=== PATIENT | female | born 1985 | race Hispanic/Latino ===

== ENCOUNTER 2018-06-16 07:04 | Inpatient (IN) | payer OTHER ==
[2018-06-15 13:23] LABS: BASOPHILS # (AUTO) 0.1 (0.0-0.1); BASOPHILS % 0.5 % (0.0-1.0); EOSINOPHILS # (AUTO) 0.2 (0.0-0.4); EOSINOPHILS % 2.2 % (0.0-6.0); LYMPHOCYTES # (AUTO) 3.7 (1.0-3.2); LYMPHOCYTES % 38.9 % (18.0-39.1); MEAN CORPUSCULAR HEMOGLOBIN 24.2 pg (28-32); MEAN CORPUSCULAR HGB CONC 30.6 g/dL (31-35); MEAN CORPUSCULAR VOLUME 79.1 fL (81-99); MONOCYTES # (AUTO) 0.8 (0.2-0.8); MONOCYTES % 8.5 % (4.4-11.3); NEUTROPHILS # (AUTO) 4.7 (2.1-6.9); NEUTROPHILS % 49.6 % (38.7-80.0); PLATELET COUNT 332 x10e3/uL (140-360); RED BLOOD COUNT 4.55 x10e6/uL (3.6-5.1); RED CELL DISTRIBUTION WIDTH 15.3 % (11.7-14.4)
[2018-06-15 13:37] LABS: ANION GAP 13.8 mmol/L (8-16); BLOOD UREA NITROGEN 13 mg/dL (7-26); BUN/CREATININE RATIO 17 (6-25); CALCIUM 9.6 mg/dL (8.4-10.2); CARBON DIOXIDE 24 mmol/L (22-29); CHLORIDE 106 mmol/L (98-107); CREATININE, SERUM 0.76 mg/dL (0.57-1.11); EST GLOMERULAR FILTRATION RATE > 60 ML/MIN (60-); GLUCOSE 114 mg/dL (74-118); POTASSIUM 3.8 mmol/L (3.5-5.1); SODIUM 140 mmol/L (136-145)
[~2018-06-16] VITALS: Ht 165.1 cm; Wt 112.5 kg
[2018-06-16] MEDS ORDERED: CEFAZOLIN SOD 2 GM/D5W 50ML 50 ML IV ONE (07:19)
[2018-06-16] MEDS ORDERED: ESTROGENS CONJUGATED VAGINAL CR 45 GM TUBE PV ONE (11:52)
[2018-06-16] MEDS ORDERED: BUPIVACAINE 0.25%/EPI 30ML SDV INJ ONE (11:52)
[2018-06-16] MEDS ORDERED: MIDAZOLAM HCL 2 MG/2 ML VIAL ONE (12:34)
[2018-06-16] MEDS ORDERED: FENTANYL CITRATE/PF 100MCG/2 ML INJ ONE ×2 (12:34→17:11)
[2018-06-16] MEDS ORDERED: LIDOCAINE HCL 2% LOCAL INJ 5 ML SDV VIAL INJ ONE (14:25)
[2018-06-16] MEDS ORDERED: ONDANSETRON HCL INJ 2 MG/ML VIAL ONE (14:25)
[2018-06-16] MEDS ORDERED: NEOSTIGMINE 5 MG/5ML SYR ONE (14:25)
[2018-06-16] MEDS ORDERED: PROPOFOL IV EMULSION 10 MG/ML 20 ML VIAL ONE (14:25)
[2018-06-16] MEDS ORDERED: CEFAZOLIN SOD 1 GM VIAL ONE (14:25)
[2018-06-16] MEDS ORDERED: GLYCOPYRROLATE INJ 1MG/ 5 ML SYR ONE (14:25)
[2018-06-16] MEDS ORDERED: SEVOFLURANE INHAL SOLN 250 ML PEN BTL ONE (14:25)
[2018-06-16] MEDS ORDERED: DEXAMETHASONE SOD PHOS INJ 4 MG/ML VIAL ONE (14:25)
[2018-06-16] MEDS ORDERED: ACETAMINOPHEN 1000 MG/100 ML IV ONE (14:25)
[2018-06-16] MEDS ORDERED: ROCURONIUM BROMIDE 10 MG/ML 5ML VIAL ONE (14:25)
[2018-06-16] MEDS ORDERED: METHYLENE BLUE 1% INJ 10 ML VIAL INJ ONE (14:53)
[2018-06-16] MEDS ORDERED: IOPAMIDOL 300MG/ML 50ML INFUS..BTL IV ONE ×2 (14:57→15:06)
[2018-06-16] MEDS ORDERED: METRONIDAZOLE 500MG/NS 100ML 100 ML IV ONE (15:12)
[2018-06-16] MEDS ORDERED: ACETAMINOPHEN 1000 MG/100 ML 100 ML IV ONE (16:26)
[2018-06-16] MEDS ORDERED: BISACODYL 5 MG TAB EC PO PRN (17:15)
[2018-06-16] MEDS ORDERED: ONDANSETRON HCL INJ 2 MG/ML VIAL IV PRN (17:15)
[2018-06-16] MEDS ORDERED: ZOLPIDEM TARTRATE 5 MG TAB PO PRN (17:15)
[2018-06-16 17:42] LABS: HEMATOCRIT 29.6 % (34.2-44.1); MEAN CORPUSCULAR HEMOGLOBIN 24.2 pg (28-32); MEAN CORPUSCULAR HGB CONC 30.4 g/dL (31-35); MEAN CORPUSCULAR VOLUME 79.6 fL (81-99); PLATELET COUNT 310 x10e3/uL (140-360); RED BLOOD COUNT 3.72 x10e6/uL (3.6-5.1); RED CELL DISTRIBUTION WIDTH 15.5 % (11.7-14.4)
[2018-06-16] MEDS ORDERED: LEVOFLOXACIN 500MG/D5W 100ML 100 ML IV SCH ×2 (18:00→20:00)
[2018-06-16] MEDS: MORPHINE SULFATE 1 MG/ML 30ML PCA IV PRN (18:06)
[2018-06-16 18:39] LABS: EOSINOPHILS % (MANUAL) 1 % (0-7); HYPOCHROMASIA SLIGHT; LYMPHOCYTES % (MANUAL) 11 % (19-48); MICROCYTOSIS SLIGHT; MONOCYTES % (MANUAL) 1 % (3.4-9.0); NEUTROPHILS % (MANUAL) 87 % (40-74); PLATELET ESTIMATE ADEQUATE; PLATELET MORPHOLOGY COMMENT NORMAL; RBC MORPHOLOGY COMMENT ABNORMAL
[2018-06-16 20:00] VITALS: BP 102/54
[2018-06-16] MEDS: LACTATED RINGER'S 1,000 ML IV SCH (20:34)
--- NOTE | 2018-06-16 20:55 | Consultation ---
DATE OF CONSULTATION: June 16, 2018 INTRAOPERATIVE CONSULTATION SERVICE: Urology. ATTENDING PHYSICIAN: Dr. Dee Parker HISTORY OF PRESENT ILLNESS: This is a 32-year-old patient that I was called for consultation during gynecological surgery. The surgery was laparoscopic, which was performed by the rf manager, is hysterectomy, right salpingo-oophorectomy, left salpingectomy. During the procedure, they thought that they identified some opening into the bladder. Patient does not have any previous urological history. Past surgical history is 2 C-sections. Patient is significantly obese and weighs about 250 pounds. No information about family. ALLERGIES TO MEDICATIONS: NOT DOCUMENTED. MEDICATIONS: See MAR. REVIEW OF SYSTEMS: Unable to obtain at the present time. PHYSICAL EXAMINATION: GENERAL: Patient is presently intubated. VITAL SIGNS: Blood pressure 110/65, pulse 88, temperature normal. HEAD: Symmetric. ABDOMEN: Not distended. PELVIC: Unremarkable. LOWER EXTREMITIES: No edema. LABORATORY DATA: Hemoglobin on June 15, 2018 11 g, white count 9.45. Creatinine 0.76, BUN 13. Electrolytes normal. Blood pressure before surgery 110/70, pulse 70. IMPRESSION: 1. Status post laparoscopic hysterectomy, right salpingo-oophorectomy, and left salpingectomy. 2. Obesity. 3. Possible injury to bladder. PLAN: I am planning to do cystoscopy, cystogram and pending the findings consider additional steps. Thank you for the consult. Job#: [id number]
--- NOTE | 2018-06-16 21:10 | Operative Report ---
DATE OF PROCEDURE: June 16, 2018 SERVICE: Urology. ATTENDING PHYSICIAN: Dr. Dee Parker. PREOPERATIVE DIAGNOSIS: Suspected injury to the bladder during laparoscopic salpingo-oophorectomy on the right side, left salpingectomy and hysterectomy. POSTOPERATIVE DIAGNOSIS: Bladder perforation above the trigone and the posterior wall of the bladder and blood clots in the bladder. OPERATION PERFORMED 1. Cystogram under fluoroscopic control. 2. Cystoscopy and evacuation of clots. 3. Open repair of bladder perforation, complicated due to the previous surgery. ICE MAKER: Dr. Parker. CLINICAL INDICATION NOTE: This is a 32-year-old patient, underwent laparoscopic gynecological surgery and they noticed possible injury to the bladder. Patient was assessed with cystoscopy and cystogram that revealed extravasation and cystoscopy revealed blood clots and opening in the bladder. DESCRIPTION OF PROCEDURE: The patient then was repositioned in a supine position. A 22-[place] 25 cm Garcia catheter was inserted. She was prepped and draped in a sterile fashion. A Pfannenstiel incision was done. The bladder opening was identified about 1 inch in length, very close to the cuff of the vagina. The bladder posterior wall was from the vagina and closed in 2 layers. A chromic 2-0 was used in a running fashion to close the bladder mucosa and muscularis and a 2nd layer of 2-0 PDS interrupted [id number] was used. Following this, injection of the bladder did not reveal any leakage. The closure appeared to be quite water tight. Following this, a 19-Bobby drain was brought through a separate stab incision and placed near the closure of the bladder in the vaginal cuff. Of note, during the procedure, Dr. Parker closed the vaginal cuff. The vaginal cuff was closed with 0 PDS. The abdomen was closed in usual fashion by Dr. Parker. Job#: [id number]
[2018-06-16 23:13] VITALS: BP 102/54
[2018-06-16 23:14] VITALS: BP 102/54
[2018-06-16 23:15] VITALS: BP 102/54
[2018-06-17] VITALS (7 sets, daily range): BP systolic 85–114; BP diastolic 43–54
[2018-06-17] MEDS: LACTATED RINGER'S 1,000 ML IV SCH ×3 (01:07→17:48)
[2018-06-17 06:34] LABS: BASOPHILS % 0.1 % (0.0-1.0); HEMOGLOBIN 7.3 g/dL (12.0-16.0); LYMPHOCYTES # (AUTO) 1.5 (1.0-3.2); LYMPHOCYTES % 11.1 % (18.0-39.1); MEAN CORPUSCULAR HEMOGLOBIN 25.1 pg (28-32); MEAN CORPUSCULAR HGB CONC 32.6 g/dL (31-35); MONOCYTES # (AUTO) 1.3 (0.2-0.8); MONOCYTES % 9.1 % (4.4-11.3); NEUTROPHILS # (AUTO) 10.9 (2.1-6.9); NEUTROPHILS % 79.2 % (38.7-80.0); PLATELET COUNT 267 x10e3/uL (140-360); RED BLOOD COUNT 2.91 x10e6/uL (3.6-5.1); RED CELL DISTRIBUTION WIDTH 15.5 % (11.7-14.4)
[2018-06-17 06:38] LABS: HEMATOCRIT 22.4 % (34.2-44.1)
[2018-06-17 08:38] LABS: ALANINE AMINOTRANSFERASE 11 IU/L (0-55); ALBUMIN/GLOBULIN RATIO 1.1 (0.8-2.0); ALKALINE PHOSPHATASE 37 IU/L (40-150); ANION GAP 9.6 mmol/L (8-16); BLOOD UREA NITROGEN 9 mg/dL (7-26); BUN/CREATININE RATIO 15 (6-25); CALCIUM 8.4 mg/dL (8.4-10.2); CARBON DIOXIDE 24 mmol/L (22-29); CHLORIDE 101 mmol/L (98-107); CREATININE, SERUM 0.61 mg/dL (0.57-1.11); EST GLOMERULAR FILTRATION RATE > 60 ML/MIN (60-); GLUCOSE 124 mg/dL (74-118); POTASSIUM 3.6 mmol/L (3.5-5.1); SODIUM 131 mmol/L (136-145)
[2018-06-17] MEDS ORDERED: SODIUM CHLORIDE 0.9% 250ML 250 ML IV ONE (09:15)
[2018-06-17] MEDS: HYDROCODONE/APAP 5MG-325MG TAB PO PRN ×2 (10:17→14:05)
[2018-06-17] MEDS: KETOROLAC TROMETHAMINE 30 MG/ML VIAL IM PRN (11:13)
--- NOTE | 2018-06-17 13:41 | Diagnostic Imaging Report ---
Examination: Single AP view of the chest. COMPARISON: None. INDICATION: PICC line DISCUSSION: Right upper extremity PICC is noted. The tip projects over the expected region of the low superior vena cava. Lungs are well-inflated and without consolidation or effusion. Normal cardiomediastinal contour when accounting for portable, AP technique. No acute osseous abnormality. IMPRESSION: Tip of right upper extremity PICC line projects over the low superior vena cava. Clear lungs. Signed by: Dr. Joel Alvarado M.D. on 06/17/2018 1:38 PM
[2018-06-17] MEDS: MORPHINE SULFATE 1 MG/ML 30ML PCA IV PRN (15:06)
[2018-06-17] MEDS ORDERED: SODIUM CHLORIDE 0.9% 250ML 250 ML ONE (15:52)
--- NOTE | 2018-06-17 19:13 | Operative Report ---
DATE OF PROCEDURE: PREOPERATIVE DIAGNOSES 1. Pelvic pain. 1. Dysmenorrhea. POSTOPERATIVE DIAGNOSES 1. Pelvic pain. 2. Dysmenorrhea. PROCEDURES PERFORMED 1. Laparoscopic-assisted vaginal hysterectomy. 2. Right salpingo-oophorectomy. DIRECTOR HAIR: Dr. Harris. COMPLICATIONS: Cystotomy. ESTIMATED BLOOD LOSS: 800 mL. PROCEDURE: Patient is 32, morbidly obese with previous 2 sections, who was taken to the OR, and under general anesthesia she was prepped and draped in the normal sterile fashion, placed in the dorsal lithotomy position. A Garcia catheter was placed inside the bladder. Two Allis clamps were applied at the umbilicus to gustavo the umbilicus. An infraumbilical skin incision was made with a scalpel, and a bladeless trocar and cannula with a scope inside was passed through the umbilicus into the abdominal cavity. Trocar was removed. Then the scope was slid through the sleeve into the abdominal cavity. Abdomen was inflated with carbon dioxide gas. Patient was placed in Trendelenburg position. A VCare inside the uterus was used to manipulate the uterus. It showed that excessive adhesions between the bladder and the uterus due to previous section, adhesions between the right adnexa and pelvic side rangel with multiple ovarian cysts. The left ovary looked normal. Omental adhesions to the anterior abdominal wall. Following this, 2 other ports were made in the abdomen after making a 5-mm skin incision with a scalpel, and a 5-mm bladeless trocar and cannula was passed through the abdominal wound into the abdominal cavity. Trocars were removed, and using a grasper and LigaSure, the omentum was cauterized and cut using the LigaSure vascular occlusive device. Following this, the right ovary was held with the graspers by the nursing home assistant administrator, and using the LigaSure the adhesions between the ovary and the pelvic side wall were divided and the right adnexa was freed. Using the LigaSure medial to the left ovary, the apex of the broad ligament was cauterized and cut. The round ligament on each side was cauterized and cut using the same instrument. At that stage, decision was made to carry on with vaginal hysterectomy after cutting the adhesions in the pelvis using the LigaSure. A weighted speculum was placed inside the vagina. Cervix was grasped with single-toothed tenacula. Subvaginal tissue was injected with Marcaine with epinephrine 0.25%, 10 mL, and a circumferential vaginal skin incision with the scalpel at the level of the bladder line was performed. The bladder was dissected off the cervix using curved Albright scissors and gentle sweeps of the Ray-Thu wrapped on the index finger. Pouch of Marcel was opened with Metzenbaum scissors, and the weighted speculum was advanced into the pouch of Marcel. Minimal descent of the uterus was noted due to the patient had no vaginal deliveries in the past. Following this, the uterosacral ligaments were clamped with a curved Zeppelin clamp, cut, the pedicle secured with transfixion sutures of Vicryl 0. The same was repeated on the other side. Uterine vessels on each side were clamped with a curved Zeppelin, cut, and pedicle secured with transfixion sutures of Vicryl 0. The same was repeated on the other side. Following this, the fundus was everted outside the introitus and the anterior pouch was opened with Metzenbaum scissors. The uterus was freed from the surrounding structures and sent to pathology. Hemostasis was found to be adequate after clamping the right uterine vessels again with the curved Zeppelin clamps and pedicle secured with transfixion suture of Vicryl 0. Following this, it was noted that hematuria was noted in the urinary catheter, and the decision was made to perform cystoscopy. This was performed and showed there was a tear in the bladder, a cystotomy. Accordingly, Dr. Polo Cárdenas was called and he came in for intraoperative consultation. He decided at that stage to open the abdomen using the Pfannenstiel skin incision as it comes in his dictation and performed a repair of cystotomy. Also, at that stage bleeding was noted at the back of the vagina and he placed hemostatic figure-of-8 Vicryl sutures to achieve hemostasis. Surgicel was applied in the pelvis, and ALLA drain was placed and secured to the skin. Abdomen was closed in layers using PDS for the fascia, and skin was closed with phuong and also the ports of the laparoscope, skin closure was performed using phuong. Patient tolerated the procedure well. Lap, instrument and needle count was correct x2 at the end of the procedure. Job#: [id number] EV
[2018-06-17] MEDS: ACETAMINOPHEN 325 MG TAB PO PRN (22:00)
[2018-06-18] VITALS (7 sets, daily range): BP systolic 86–114; BP diastolic 53–70
[2018-06-18] MEDS: LACTATED RINGER'S 1,000 ML IV SCH ×3 (02:30→17:13)
[2018-06-18 05:45] LABS: BASOPHILS % 0.3 % (0.0-1.0); EOSINOPHILS # (AUTO) 0.1 (0.0-0.4); EOSINOPHILS % 0.6 % (0.0-6.0); HEMATOCRIT 25.2 % (34.2-44.1); LYMPHOCYTES # (AUTO) 2.1 (1.0-3.2); LYMPHOCYTES % 22.5 % (18.0-39.1); MEAN CORPUSCULAR HEMOGLOBIN 25.9 pg (28-32); MEAN CORPUSCULAR HGB CONC 31.7 g/dL (31-35); MEAN CORPUSCULAR VOLUME 81.6 fL (81-99); MONOCYTES # (AUTO) 1.1 (0.2-0.8); MONOCYTES % 11.6 % (4.4-11.3); NEUTROPHILS % 64.5 % (38.7-80.0); PLATELET COUNT 223 x10e3/uL (140-360); RED BLOOD COUNT 3.09 x10e6/uL (3.6-5.1); RED CELL DISTRIBUTION WIDTH 16.3 % (11.7-14.4)
[2018-06-18] MEDS: MORPHINE SULFATE 1 MG/ML 30ML PCA IV PRN (09:43)
[2018-06-18] MEDS: ACETAMINOPHEN 325 MG TAB PO PRN (22:00)
[2018-06-19] VITALS (8 sets, daily range): BP systolic 97–113; BP diastolic 53–62
[2018-06-19] MEDS: LACTATED RINGER'S 1,000 ML IV SCH ×3 (01:11→17:05)
[2018-06-19] MEDS: KETOROLAC TROMETHAMINE 30 MG/ML VIAL IM PRN (04:09)
[2018-06-19 06:13] LABS: BASOPHILS % 0.4 % (0.0-1.0); EOSINOPHILS # (AUTO) 0.4 (0.0-0.4); EOSINOPHILS % 4.2 % (0.0-6.0); HEMATOCRIT 27.2 % (34.2-44.1); HEMOGLOBIN 8.5 g/dL (12.0-16.0); LYMPHOCYTES # (AUTO) 2.2 (1.0-3.2); LYMPHOCYTES % 26.8 % (18.0-39.1); MEAN CORPUSCULAR HEMOGLOBIN 25.6 pg (28-32); MEAN CORPUSCULAR HGB CONC 31.3 g/dL (31-35); MEAN CORPUSCULAR VOLUME 81.9 fL (81-99); MONOCYTES # (AUTO) 0.8 (0.2-0.8); MONOCYTES % 9.5 % (4.4-11.3); NEUTROPHILS # (AUTO) 4.9 (2.1-6.9); NEUTROPHILS % 58.5 % (38.7-80.0); PLATELET COUNT 248 x10e3/uL (140-360); RED BLOOD COUNT 3.32 x10e6/uL (3.6-5.1); RED CELL DISTRIBUTION WIDTH 16.4 % (11.7-14.4)
[2018-06-19 08:28] LABS: ANION GAP 14.5 mmol/L (8-16); BLOOD UREA NITROGEN 6 mg/dL (7-26); BUN/CREATININE RATIO 9 (6-25); CALCIUM 8.7 mg/dL (8.4-10.2); CARBON DIOXIDE 25 mmol/L (22-29); CHLORIDE 102 mmol/L (98-107); CREATININE, SERUM 0.66 mg/dL (0.57-1.11); EST GLOMERULAR FILTRATION RATE > 60 ML/MIN (60-); GLUCOSE 136 mg/dL (74-118); POTASSIUM 3.5 mmol/L (3.5-5.1); SODIUM 138 mmol/L (136-145)
[2018-06-19] MEDS: HYDROCODONE/APAP 5MG-325MG TAB PO PRN ×3 (10:19→21:31)
[2018-06-20] VITALS: BP 99/55
[2018-06-20] MEDS: LACTATED RINGER'S 1,000 ML IV SCH ×2 (01:17→06:33)
[2018-06-20 04:00] VITALS: BP 114/53
[2018-06-20] MEDS: HYDROCODONE/APAP 5MG-325MG TAB PO PRN ×2 (05:49→11:20)
[2018-06-20 10:40] VITALS: BP 114/53
[2018-06-20 11:44] VITALS: BP 116/58
[2018-06-20] MEDS ORDERED: LEVAQUIN500 MG PO (11:46)
[2018-06-20] MEDS ORDERED: TYLENOL WITH C1 EACH PO (11:47)
[2018-06-20] MEDS ORDERED: FERRALET 90 DU1 EACH PO (11:48)
[2018-06-20] MEDS ORDERED: COLACE100 MG PO (11:50)
--- NOTE | 2018-10-02 15:03 | Discharge Summary ---
Came in for laparoscopic-assisted vaginal hysterectomy. She underwent the procedure. However, cystotomy was noted during the procedure and was fixed by urologist, Dr. Cárdenas. The patient made an unremarkable postoperative recovery. She was afebrile and taking p.o. Had a bowel movement. She was discharged home to be seen in the office in a few weeks time. GEORGIANA RENE MD Job#: [id number] [place]
== END 2018-06-20 13:00 | disposition home or self-care (01) | DRG 742 ==
LOC: OR 07:04 → PACU V 17:12 → MED/SURG 18:35
PROVIDERS: ADMIT Obstetrics & Gynecology; ATTEND Obstetrics & Gynecology
PROC: 0UT0FZZ Resection of Right Ovary, Via Natural or Artificial Opening With Percutaneous Endoscopic Assistance (ICD-10-PCS; 2018-06-16)
PROC: 0TQB0ZZ Repair Bladder, Open Approach (ICD-10-PCS; 2018-06-16)
PROC: 0TCB8ZZ Extirpation of Matter from Bladder, Via Natural or Artificial Opening Endoscopic (ICD-10-PCS; 2018-06-16)
PROC: 0UT9FZZ Resection of Uterus, Via Natural or Artificial Opening With Percutaneous Endoscopic Assistance (ICD-10-PCS; principal; 2018-06-16 09:00)
PROC: 0UT5FZZ Resection of Right Fallopian Tube, Via Natural or Artificial Opening With Percutaneous Endoscopic Assistance (ICD-10-PCS; 2018-06-16 09:00)
PROC: 0T9B00Z Drainage of Bladder with Drainage Device, Open Approach (ICD-10-PCS; 2018-06-17)
PROC: 02HV33Z Insertion of Infusion Device into Superior Vena Cava, Percutaneous Approach (ICD-10-PCS; 2018-06-17)
PROC: BT101ZZ Fluoroscopy of Bladder using Low Osmolar Contrast (ICD-10-PCS; 2018-06-17)
PROC: 30243N1 Transfusion of Nonautologous Red Blood Cells into Central Vein, Percutaneous Approach (ICD-10-PCS; 2018-06-17)
DX: N83.209 Unspecified ovarian cyst, unspecified side (principal); Z68.41 Body mass index [BMI] 40.0-44.9, adult; E87.1 Hypo-osmolality and hyponatremia; R10.2 Pelvic and perineal pain; D64.9 Anemia, unspecified; E66.01 Morbid (severe) obesity due to excess calories
CPT/HCPCS: 36415; 36430; 36569; 71045; 74420; 80048; 80053; 84702; 85007; 85025; 85027; 86850; 86900; 86920; 88307; J0690; J1100; J1885; J1956; J2001; J2250; J2270; J2405; J7050; J7120; P9016